=== PATIENT | male | born 1960 | race Caucasian/White ===

== ENCOUNTER 2017-06-13 06:01 | Day surgery (SDC) | payer MEDICARE ==
[2017-06-12 10:19] LABS: BASOPHILS # (AUTO) 0.1 X10'3 (0-0.2); BASOPHILS % (AUTO) 1.1 % (0-1); EOSINOPHILS # (AUTO) 0.3 X10'3 (0-0.9); EOSINOPHILS % (AUTO) 4.5 % (0-6); HEMOGLOBIN 14.4 g/dl (14.0-17.9); LYMPHOCYTES # (AUTO) 1.5 X10'3 (1.1-4.8); LYMPHOCYTES % (AUTO) 24.7 % (21-51); MEAN CORPUSCULAR HEMOGLOBIN 34.3 PG (27.0-31.0); MONOCYTES # (AUTO) 0.6 X10'3 (0-0.9); MONOCYTES % (AUTO) 9.5 % (2-12); NEUTROPHILS # (AUTO) 3.7 X10'3 (1.8-7.7); NEUTROPHILS % (AUTO) 60.2 % (42-75); PLATELET COUNT 178 X10'3 (140-440); RED BLOOD COUNT 4.19 X10'6 (4.70-6.10); RED CELL DISTRIBUTION WIDTH 13.8 % (11.5-14.5); WHITE BLOOD COUNT 6.2 X10'3 (4.5-11.0)
[2017-06-12 10:29] LABS: PARTIAL THROMBOPLASTIN TIME 28 SECONDS (22-32); PROTHROMBIN TIME 10.4 SECONDS (9.0-12.0)
[2017-06-12 10:30] LABS: ALBUMIN 3.9 G/DL (3.4-5.0); ANION GAP 9 (8-16); BLOOD UREA NITROGEN 13 MG/DL (7-18); BUN/CREATININE RATIO 14.6 (5.4-32.0); CALCIUM 8.7 MG/DL (8.5-10.1); CHLORIDE 104 MMOL/L (99-107); CREATININE 0.89 MG/DL (0.60-1.10); GLUCOSE 108 MG/DL (70-104); POTASSIUM 4.1 MMOL/L (3.5-5.1); SODIUM 143 MMOL/L (135-145); eGFR 88 ML/MIN
[2017-06-13] VITALS (17 sets, daily range): BP systolic 147–174; BP diastolic 90–101
[~2017-06-13] VITALS: Ht 167.6 cm; Wt 77.7 kg
[2017-06-13] MEDS ORDERED: SIMV40TA4 PO (06:22)
[2017-06-13] MEDS ORDERED: ASPI-611 PO (06:22)
[2017-06-13] MEDS ORDERED: METO200T49 PO (06:22)
[2017-06-13] MEDS ORDERED: LORazepam 0.5 MG tablet PO PRN (06:25)
[2017-06-13] MEDS ORDERED: diphenhydrAMINE 25mg capsule PO PRN (06:25)
[2017-06-13] MEDS ORDERED: normal saline 1000ml 1,000 ML IV SCH (06:40)
[2017-06-13] MEDS ORDERED: LIDOcaine 1%/PF (10mg/ml) 5ml vial ONE ×2 (07:30→09:02)
[2017-06-13] MEDS ORDERED: nitroGLYCERIN-Tridil 50MG/D5W 250 ML IV ONE (07:30)
[2017-06-13] MEDS ORDERED: heparin 1,000unit/ml 10ml vial 10 ML ONE (07:30)
[2017-06-13] MEDS ORDERED: iohexol 350 MG/ML 50ML vial IV ONE (07:30)
[2017-06-13] MEDS ORDERED: iohexol 350MG/ML 100ml bottle IV ONE ×2 (07:30→08:30)
[2017-06-13] MEDS ORDERED: ISOS60TA4 PO (07:34)
[2017-06-13] MEDS ORDERED: fentaNYL/PF 50MCG/1 ML 2ML syringe ONE (07:59)
[2017-06-13] MEDS ORDERED: midazolam 2 mg/2 ml injection ONE (07:59)
[2017-06-13] MEDS ORDERED: diltiazem 5mg/ml 5ml inj. IV ONE (09:26)
== END 2017-06-13 18:10 | disposition home or self-care (01) ==
LOC: SSTAY O 06:01
PROVIDERS: ATTEND Internal Medicine Cardiovascular Disease
DX: I25.10 Atherosclerotic heart disease of native coronary artery without angina pectoris (principal); I10 Essential (primary) hypertension; E78.5 Hyperlipidemia, unspecified; J44.9 Chronic obstructive pulmonary disease, unspecified; F17.210 Nicotine dependence, cigarettes, uncomplicated; G89.29 Other chronic pain; E87.6 Hypokalemia; Z95.5 Presence of coronary angioplasty implant and graft; Z98.890 Other specified postprocedural states; Z72.89 Other problems related to lifestyle; Z88.0 Allergy status to penicillin; Z79.82 Long term (current) use of aspirin; Z79.899 Other long term (current) drug therapy
CPT/HCPCS: 36415; 80048; 85025; 85347; 85610; 85730; 92920; 93005; 93460; 99152; 99153; A6257; C1725; C1760; C1769; J1644; J2001; J2250; J3010; J3490; J7030; Q0163; Q9967; A4620